=== PATIENT | female | born 1945 | race Caucasian/White ===

== ENCOUNTER 2020-10-24 17:30 | Outpatient (CLI) | payer MEDICARE | END 2020-10-24 23:59 | disposition home or self-care (01) | LOC: LAB.N 17:30 | PROVIDERS: ATTEND Nurse Practitioner | DX: R05 Cough (principal); Z20.822 Contact with and (suspected) exposure to COVID-19 | CPT/HCPCS: 87070; 87205; 87275; 87276; U0004 ==

== ENCOUNTER 2021-09-25 08:00 | Outpatient (CLI) | payer MEDICARE | END 2021-09-25 23:59 | LOC: LAB.N 08:00 | PROVIDERS: ATTEND Nurse Practitioner | DX: R05.9 Cough, unspecified (principal); R09.81 Nasal congestion; Z20.822 Contact with and (suspected) exposure to COVID-19 | CPT/HCPCS: 87275; 87276; U0004 ==